=== PATIENT | female | born 1995 | race Caucasian/White ===

== ENCOUNTER 2017-10-24 21:20 | Emergency (ER) | payer BC, OTHER ==
[2017-10-24 21:45] VITALS: BP 149/51
--- NOTE | 2017-10-24 21:47 | EDM.PDOC ---
ED HPI GENERAL MEDICAL PROBLEM - General Chief Complaint: General Stated Complaint: Passed out at work Time Seen by Provider: 10/24/17 21:42 Source of Information: Reports: Patient History Limitations: Reports: No Limitations - History of Present Illness INITIAL COMMENTS - FREE TEXT/NARRATIVE: Patient is a 21-year-old female who presents to the emergency department with a complaint of suspected syncopal episode. 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 She believes she might have passed out, however, she did not fall to the floor. She states she does have a small abrasion on her forehead. At this time She denies similar symptoms in the past, headache, vision changes, shortness of breath, chest pain, nausea, vomiting, drug use, or neck pain. Patient states that she drove herself to the emergency department, and when she presented she was walking without difficulty and using her cell phone. Onset: Today Onset Date: 10/24/17 Onset Time: 20:00 Duration: Other (Unsure) Improves with: Reports: Other (Spontaneously) Worsens with: Reports: None Associated Symptoms: Reports: No Other Symptoms - Related Data Allergies Allergy/AdvReac Type Severity Reaction Status Date / Time amoxicillin Allergy Hives Verified 10/24/17 21:46 Home Meds: Home Meds . 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 , Other (See Below) Other SHIPPING AND RECEIVING WEIGHER History: irregular periods Musculoskeletal History: Reports: Back Pain, Chronic, Other (See Below) Other Musculoskeletal History: fx tail bone Psychiatric History: Reports: Depression - Infectious Disease History Infectious Disease History: Reports: Chicken Pox - Past Surgical History Musculoskeletal Surgical History: Reports: Other (See Below) Social & Family History - Caffeine Use Caffeine Use: Reports: Coffee - Living Situation & Occupation Living situation: Reports: ED ROS GENERAL - Review of Systems Review Of Systems: ROS reveals no pertinent complaints other than HPI. Constitutional: Reports: No Symptoms HEENT: Reports: No Symptoms Respiratory: Reports: No Symptoms Cardiovascular: Reports: No Symptoms Endocrine: Reports: No Symptoms GI/Abdominal: Reports: No Symptoms : Reports: No Symptoms Musculoskeletal: Reports: No Symptoms Skin: Reports: No Symptoms Neurological: Reports: Syncope Psychiatric: Reports: No Symptoms Hematologic/Lymphatic: Reports: No Symptoms Immunologic: Reports: No Symptoms ED EXAM, GENERAL - Physical Exam Exam: See Below Exam Limited By: No Limitations General Appearance: Alert, WD/WN, No Apparent Distress Eye Exam: Bilateral Eye: Normal Inspection Nose: Normal Inspection, Normal Mucosa, No Blood Throat/Mouth: Normal Inspection, Normal Oropharynx, No Airway Compromise Head: Other (Small abrasion to right superior forehead at hairline. There is no hematoma, or laceration noted.) Neck: Normal Inspection, Supple, Non-Tender, Full Range of Motion Respiratory/Chest: No Respiratory Distress, Lungs Clear, Normal Breath Sounds, No Accessory Muscle Use, Chest Non-Tender Cardiovascular: Normal Peripheral Pulses, Regular Rate, Rhythm, No Murmur GI/Abdominal: Normal Bowel Sounds, Soft, Non-Tender, No Organomegaly, No Distention, No Abnormal Bruit, No Mass Back Exam: Normal Inspection. No: CVA Tenderness (L), CVA Tenderness (R) Extremities: Normal Inspection, Normal Range of Motion, Non-Tender, No Pedal Edema Neurological: Alert, Oriented, CN II-XII Intact, Normal Cognition, No Motor/ Sensory Deficits Psychiatric: Normal Affect, Normal Mood Skin Exam: Warm, Dry, Intact, Normal Color, No Rash Lymphatic: No Adenopathy Course - Re-Assessments/Exams Free Text/Narrative Re-Assessment/Exam: 10/24/17 22:48 Patient afebrile, nontoxic appearing, vital signs stable, asymptomatic while in emergency department. Patient will follow-up with PCP in the next 2-3 days. Departure - Departure Time of Disposition: 22:49 Disposition: Home, Self-Care 01 Condition: Good Clinical Impression: Near syncope - Discharge Information Instructions: Near-Syncope, [id number] Referrals: Kristina Dial PA-C [Primary Care Provider] - Additional Instructions: Follow-up at the clinic in the next 2-3 days. Return to me shortness or symptoms continue or worsen. - Assessment/Plan Assessment:: Near syncopal episode Plan: Follow-up with PCP
[2017-10-24 22:35] LABS: CHLORIDE,CL 104 mmol/L (98-115); SODIUM,NA 141 mmol/L (136-145)
== END 2017-10-24 22:55 | disposition home or self-care (01) ==
LOC: KA.ED 21:20
DX: R55 Syncope and collapse (principal); S00.81XA Abrasion of other part of head, initial encounter; Z88.1 Allergy status to other antibiotic agents; X58.XXXA Exposure to other specified factors, initial encounter; Y99.0 Civilian activity done for income or pay
CPT/HCPCS: 80053; 80305-QW; 81001; 81025; 85025; 99284

== ENCOUNTER 2021-04-29 01:29 | Emergency (ER) | payer BC ==
[2021-04-29 01:46] VITALS: BP 146/63; PULSE 87
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
== END 2021-04-29 02:10 | disposition home or self-care (01) ==
LOC: KA.ED 01:29
DX: K91.841 Postprocedural hemorrhage of a digestive system organ or structure following other procedure (principal); Z88.0 Allergy status to penicillin
CPT/HCPCS: 99283

== ENCOUNTER 2021-05-05 02:00 | Emergency (ER) | payer BC ==
[2021-05-05 02:36] VITALS: BP 114/62
[2021-05-05 03:31] VITALS: PULSE 117
== END 2021-05-05 03:20 | disposition home or self-care (01) ==
LOC: KA.ED 02:00
DX: U07.1 COVID-19 (principal); K21.9 Gastro-esophageal reflux disease without esophagitis; Z72.0 Tobacco use; Z88.0 Allergy status to penicillin
CPT/HCPCS: 36415; 85025; 99284; U0002

== ENCOUNTER 2021-06-29 00:28 | Emergency (ER) | payer BC ==
[2021-06-29 00:33] VITALS: BP 124/81; PULSE 85
[2021-06-29] MEDS ORDERED: Ibuprofen 600 MG Tab PO ONE (01:02)
== END 2021-06-29 02:35 | disposition home or self-care (01) ==
LOC: KA.ED 00:28
DX: S93.602A Unspecified sprain of left foot, initial encounter (principal); Z88.0 Allergy status to penicillin; Z72.0 Tobacco use; X50.0XXA Overexertion from strenuous movement or load, initial encounter
CPT/HCPCS: 73630-LT; 99283; A9270-GY